=== PATIENT | male | born 1980 | race Caucasian/White ===

== ENCOUNTER 2018-02-16 15:07 | Emergency (ER) | payer OTHER | END 2018-02-16 17:28 | disposition home or self-care (01) | LOC: M ED 15:07 | DX: S00.83XA Contusion of other part of head, initial encounter (principal); S06.0X0A Concussion without loss of consciousness, initial encounter; W22.8XXA Striking against or struck by other objects, initial encounter; Y92.099 Unspecified place in other non-institutional residence as the place of occurrence of the external cause; Y93.9 Activity, unspecified; Y99.9 Unspecified external cause status | CPT/HCPCS: 70450 ==

== ENCOUNTER 2019-07-22 13:07 | Emergency (ER) | payer OTHER ==
[~2019-07-22] VITALS: Ht 170.2 cm; Wt 92.5 kg
[2019-07-22 13:08] VITALS: BP 140/84
[2019-07-22 14:15] LABS: INFLUENZA A AMPLIFICATION NEGATIVE (NEGATIVE); INFLUENZA B AMPLIFICATION NEGATIVE (NEGATIVE)
[2019-07-22] MEDS ORDERED: OSEL75CA PO (14:22)
[2019-07-22] MEDS ORDERED: ZOFR4TAB16 PO (14:23)
[2019-07-22] MEDS ORDERED: ONDANSETRON 4 MG ORAL DISINTEGRATING TAB (Q0162 PER 1MG) PO ONE (14:30)
== END 2019-07-22 14:40 | disposition home or self-care (01) ==
LOC: M ED 13:07
DX: Z20.828 Contact with and (suspected) exposure to other viral communicable diseases (principal); R09.89 Other specified symptoms and signs involving the circulatory and respiratory systems
CPT/HCPCS: 87502; 99282; Q0162

== ENCOUNTER 2020-04-09 23:29 | Emergency (ER) | payer OTHER ==
[~2020-04-09] VITALS: Ht 170.2 cm; Wt 84.1 kg
[~2020-04-09 23:29] MED LIST: OSEL75CA PO; ZOFR4TAB16 PO
[2020-04-10] MEDS ORDERED: ZYRTTAB8 PO (00:48)
[2020-04-10] MEDS ORDERED: CETI-24 PO (01:03)
[2020-04-10 03:58] VITALS: BP 168/89
== END 2020-04-10 04:02 | disposition home or self-care (01) ==
LOC: M ED 23:29
DX: F32.9 Major depressive disorder, single episode, unspecified (principal); Z63.0 Problems in relationship with spouse or partner